=== PATIENT | female | born 1995 | race Caucasian/White ===

== ENCOUNTER 2019-07-30 21:19 | Emergency (ER) | payer SELFPAY ==
[~2019-07-30] VITALS: Ht 154.9 cm; Wt 50.9 kg
[2019-07-30 21:30] VITALS: BP 117/75
--- NOTE | 2019-07-30 21:55 | NUR ---
PT AMBULATED TO BED 10 WITH STEADY GAIT.
--- NOTE | 2019-07-30 22:10 | NUR ---
PT C/O THROAT PAIN, TROUBLE SWALLOWING, CONGESTION, RUNNY NOSE, DRY COUGH, NAUSEA STARTING SATURDAY. DENIES VOMITING OR DIARRHEA, DENIES FEVER. STATES SHE HAS BEEN TAKING DAYQUIL AND NYQUIL FOR SYMPTOMS. VSS. LUNG SOUNDS CLEAR BILATERALLY. DENIES SOB OR WHEEZING. STATES SHE HAD FLU VACCINE. PMH ASTHMA DENIES TAKING INHALER OR MEDS. LMP DECEMBER. ALLERGIES: KEFLEX, BACTRIM. WILL CONTINUE TO MONITOR.
[2019-07-30 23:05] VITALS: BP 117/75
--- NOTE | 2019-07-30 23:06 | NUR ---
Patient discharged with v/s stable. Written and verbal after care instructions given and explained. Patient alert, oriented and verbalized understanding of instructions. Ambulatory with steady gait. All questions addressed prior to discharge. ID band removed. Patient advised to follow up with PMD. Rx of PROMETHAZINE, IBUPROFEN given. Patient educated on indication of medication including possible reaction and side effects. Opportunity to ask questions provided and answered.
== END 2019-07-30 23:05 | disposition home or self-care (01) ==
LOC: MED 21:19
DX: J06.9 Acute upper respiratory infection, unspecified (principal); J45.909 Unspecified asthma, uncomplicated; Z88.2 Allergy status to sulfonamides; Z88.6 Allergy status to analgesic agent
CPT/HCPCS: 99283

== ENCOUNTER 2022-07-08 14:45 | Emergency (ER) | payer OTHER ==
[~2022-07-08] VITALS: Ht 154.9 cm; Wt 53.5 kg
[2022-07-08 14:51] VITALS: BP 119/69
--- NOTE | 2022-07-08 15:37 | NUR ---
27 Y/O FEMALE BIB SELF C/O SORE THROAT WITH COUGH X2 DAYS, TOOK TYLENOL TODAY AT 0900 WITH MINIMAL RELIEF ALLERGY: BACTRIM, KEFLEX PMH: ASTHMA
[2022-07-08] MEDS ORDERED: BENZ-300 PO (18:05)
[2022-07-08] MEDS ORDERED: IBUP-2213 PO (18:05)
--- NOTE | 2022-07-08 18:23 | NUR ---
LUCY W/O PAPERWORK, CEPACOL SORE THROAT LOZENGE AND MOTRIN SENT TO [facility] IN [place] [facility]
== END 2022-07-08 18:23 | disposition home or self-care (01) ==
LOC: MED 14:45
DX: J02.9 Acute pharyngitis, unspecified (principal); Z20.822 Contact with and (suspected) exposure to COVID-19; Z88.2 Allergy status to sulfonamides; Z88.8 Allergy status to other drugs, medicaments and biological substances
CPT/HCPCS: 70360; 87081; 99284

== ENCOUNTER 2022-08-15 20:02 | Emergency (ER) | payer OTHER ==
[~2022-08-15] VITALS: Ht 154.9 cm; Wt 57.2 kg
[~2022-08-15 20:02] MED LIST: BENZ-300 PO; IBUP-2213 PO
[2022-08-15 20:11] VITALS: BP 112/72
[2022-08-15 20:15] VITALS: BP 112/72
[2022-08-15] MEDS ORDERED: INTUBATION KIT MC ONE (21:32)
--- NOTE | 2022-08-15 23:10 | NUR ---
Patient taken to bed 6.
--- NOTE | 2022-08-15 23:54 | NUR ---
Dr. Vu examining patient.
[2022-08-16] MEDS ORDERED: KETOROLAC 30 MG/ML VIAL IM ONE
--- NOTE | 2022-08-16 00:18 | NUR ---
PT TAKEN TO XRAY
--- NOTE | 2022-08-16 00:33 | NUR ---
PT RETURN FROM XRAY
[2022-08-16] MEDS ORDERED: KETOROLAC 30 MG/ML VIAL ONE (01:07)
[2022-08-16] MEDS ORDERED: CYCL-711 PO (01:24)
[2022-08-16] MEDS ORDERED: NAPR-54 PO (01:24)
--- NOTE | 2022-08-16 01:53 | NUR ---
Patient discharged with v/s stable. Written and verbal after care instructions given and explained. Patient alert, oriented and verbalized understanding of instructions. Ambulatory with steady gait. All questions addressed prior to discharge. ID band removed. Patient advised to follow up with PMD. Rx of Flexeril and naprosyn given. Opportunity to ask questions provided and answered.
--- NOTE | 2022-08-16 02:13 | NUR ---
The patient's care was reviewed and supervised by Claudia Alcazar RN, RN.
== END 2022-08-16 01:53 | disposition home or self-care (01) ==
LOC: MED 20:02
DX: S00.33XA Contusion of nose, initial encounter (principal); S80.11XA Contusion of right lower leg, initial encounter; V49.88XA Car occupant (driver) (passenger) injured in other specified transport accidents, initial encounter; Y93.89 Activity, other specified; Y92.89 Other specified places as the place of occurrence of the external cause; Y99.8 Other external cause status
CPT/HCPCS: 70160; 73590; 96372; 99284; J1885

== ENCOUNTER 2023-12-31 14:33 | Emergency (ER) | payer OTHER ==
[~2023-12-31] VITALS: Ht 154.9 cm; Wt 58.1 kg
[~2023-12-31 14:33] MED LIST changes: +CYCL-711 PO; +NAPR-337 PO
[2023-12-31 14:38] VITALS: BP 100/67; PULSE 66; RESP 18; TEMP 98.1; O2SAT 99
[2023-12-31] MEDS: KETOROLAC 30 MG/ML VIAL IM ONE (16:00)
[2023-12-31] MEDS: PROCHLORPERAZINE 10 MG/2 ML VIAL IM ONE (16:00)
== END 2023-12-31 16:46 | disposition left against medical advice (07) ==
LOC: MED 14:33
DX: G43.909 Migraine, unspecified, not intractable, without status migrainosus (principal); J45.909 Unspecified asthma, uncomplicated; Z79.899 Other long term (current) drug therapy; Z88.1 Allergy status to other antibiotic agents; Z88.2 Allergy status to sulfonamides
CPT/HCPCS: 81025; 96372; 99284; J0780; J1885